=== PATIENT | female | born 1965 | race Caucasian/White ===

== ENCOUNTER → 2017-11-28 14:16 | Outpatient (CLI) | payer MEDICARE, MEDICAID, SELFPAY ==
[2017-11-28 15:15] LABS: Amphetamine Urine VISTA NEGATIVE (<1000 ng/mL); Barbiturate Urine VISTA NEGATIVE (< 200 ng/mL); Benzodiazepine Urine VISTA POSITIVE (< 200 ng/mL); Cocaine Urine VISTA NEGATIVE (< 300 ng/mL); Ecstacy Urine VISTA NEGATIVE (< 500 ng/mL); Methadone Urine VISTA NEGATIVE (< 300 ng/mL); PCP Urine VISTA NEGATIVE (< 25 ng/mL); THC Urine VISTA NEGATIVE (< 50 ng/mL); Vista UDS pH Range 7
== END ==
PROVIDERS: Family Provider Nurse Practitioner; PCP Nurse Practitioner; Visit Provider Anesthesiology Pain Medicine
DX: F11.20 Opioid dependence, uncomplicated (principal)
CPT/HCPCS: 80307

== ENCOUNTER → 2018-02-02 13:51 | Outpatient (CLI) | payer MEDICARE, MEDICAID, SELFPAY ==
[2018-02-02 15:42] LABS: ALB/GLOB Ratio 1.2 RATIO (0.9-2.4); AST(SGOT) 61 U/L (15-37); Alanine Aminotransfer ALT/SGPT 107 U/L (13-56); Alkaline Phosphatase 79 U/L (45-117); Anion Gap 5 (5-15); BUN 6 mg/dL (7-18); BUN/Creat Ratio 6.5 RATIO (10-20); Calcium,Total 9.3 mg/dL (8.5-10.1); Chloride 109 mmol/L (98-107); Creatinine, Serum 0.92 mg/dL (0.55-1.02); EST Glomerular Filtration Rate 68 mL/min (>60); Est Glom Filt Rate - Afr Amer 82 mL/min (>60); Globulin 3.3 g/dL (2.2-4.2); Glucose 84 mg/dL (74-106); Magnesium 2.4 mg/dL (1.6-2.6); Phosphorus 3.4 mg/dL (2.5-4.9); Protein, Total 7.3 g/dL (6.4-8.2); Sodium Level 142 mmol/L (136-145)
== END ==
PROVIDERS: Family Provider Nurse Practitioner; PCP Nurse Practitioner; Visit Provider Nurse Practitioner Acute Care
DX: G62.9 Polyneuropathy, unspecified (principal); R33.9 Retention of urine, unspecified
CPT/HCPCS: 36415; 80053; 83735; 84100

== ENCOUNTER → 2018-02-12 16:40 | Outpatient (CLI) | payer MEDICARE, MEDICAID, SELFPAY ==
--- NOTE | 2018-02-12 16:40 | DT_ITS ---
This patient was seen during an EMR downtime February 05, 2018 - February 12, 2018. This patient may have a combination of paper and electronic documentation or all paper documentation. All documentation is viewable within the e-chart portion of [employer] for each patient visit.
== END ==
PROVIDERS: Family Provider Nurse Practitioner; PCP Nurse Practitioner; Visit Provider Nurse Practitioner Adult Health
DX: N39.0 Urinary tract infection, site not specified (principal)
CPT/HCPCS: 87077; 87086; 87088; 87186

== ENCOUNTER → 2018-09-13 11:39 | Outpatient (CLI) | payer MEDICARE, MEDICAID, SELFPAY ==
[2018-09-13 13:13] LABS: Amphetamine Urine VISTA NEGATIVE (<1000 ng/mL); Barbiturate Urine VISTA NEGATIVE (< 200 ng/mL); Benzodiazepine Urine VISTA POSITIVE (< 200 ng/mL); Cocaine Urine VISTA NEGATIVE (< 300 ng/mL); Ecstacy Urine VISTA NEGATIVE (< 500 ng/mL); Methadone Urine VISTA NEGATIVE (< 300 ng/mL); PCP Urine VISTA NEGATIVE (< 25 ng/mL); THC Urine VISTA POSITIVE (< 50 ng/mL); Vista UDS pH Range 7
== END ==
PROVIDERS: Family Provider Nurse Practitioner; PCP Nurse Practitioner; Referring Provider Anesthesiology Pain Medicine; Visit Provider Anesthesiology Pain Medicine
DX: F11.20 Opioid dependence, uncomplicated (principal)
CPT/HCPCS: 80307

== ENCOUNTER → 2018-11-21 13:03 | Outpatient (CLI) | payer MEDICARE, MEDICAID, SELFPAY ==
--- NOTE | 2018-11-21 13:13 | MRI_ITS ---
STUDY: MRI LUMBAR SPINE WITHOUT CONTRAST REASON FOR EXAM: Female, 53 years old. Back pain, bilateral leg pain. TECHNIQUE: Standardized fat and water weighted pulse sequences were obtained in the sagittal and axial planes. COMPARISON: 05/29/2017. FINDINGS: T12-L1: Normal endplates. Normal disc height, hydration and morphology. Normal bilateral facet joints. Normal central canal and bilateral lateral recesses. Normal bilateral intervertebral neural foramina. Normal lumbar lordosis. There is no substantial scoliosis. Normal conus medullaris that terminates at the L1-2 level. L1-2: Normal endplates. Normal disc height, hydration and morphology. Normal bilateral facet joints. Normal central canal and bilateral lateral recesses. Normal bilateral intervertebral neural foramina. L2-3: Normal endplates. Normal disc height, hydration and morphology. Normal bilateral facet joints. Normal central canal and bilateral lateral recesses. Normal bilateral intervertebral neural foramina. L3-4: Normal endplates. Normal disc height, hydration and morphology. Normal bilateral facet joints. Normal central canal and bilateral lateral recesses. Normal bilateral intervertebral neural foramina. L4-5: Normal endplates. Disc dehydration. There is a small, central, noncompressive disc protrusion. This appears predominantly spondylotic. No change compared to the prior study. Normal bilateral facet joints. Normal central canal and bilateral lateral recesses. Normal bilateral intervertebral neural foramina. L5-S1: Normal endplates. Normal disc height, hydration and morphology. Normal bilateral facet joints. Normal central canal and bilateral lateral recesses. Normal bilateral intervertebral neural foramina. Normal visualized sacral ala. Normal visualized paraspinous soft tissue structures. MRI/Spine Lumbar (Routine) IMPRESSION: 1. Stable L4-5 protrusion, predominantly spondylotic. 2. L4-5 degenerative disc changes. Electronically Signed: Karen Lei MD at 21:37 EDT Tel , Service support ,
== END ==
PROVIDERS: Family Provider Internal Medicine Rheumatology; PCP Internal Medicine; Referring Provider Anesthesiology Pain Medicine; Visit Provider Anesthesiology Pain Medicine
DX: M54.9 Dorsalgia, unspecified (principal); M79.606 Pain in leg, unspecified
CPT/HCPCS: 72148

== ENCOUNTER → 2018-12-12 16:00 | Outpatient (CLI) | payer MEDICARE, MEDICAID, SELFPAY ==
[2018-12-12 18:07] LABS: Amphetamine Urine VISTA NEGATIVE (<1000 ng/mL); Barbiturate Urine VISTA NEGATIVE (< 200 ng/mL); Benzodiazepine Urine VISTA POSITIVE (< 200 ng/mL); Cocaine Urine VISTA NEGATIVE (< 300 ng/mL); Ecstacy Urine VISTA NEGATIVE (< 500 ng/mL); Methadone Urine VISTA NEGATIVE (< 300 ng/mL); PCP Urine VISTA NEGATIVE (< 25 ng/mL); THC Urine VISTA NEGATIVE (< 50 ng/mL); Vista UDS pH Range 7
== END ==
PROVIDERS: Family Provider Internal Medicine; PCP Internal Medicine; Referring Provider Anesthesiology Pain Medicine; Visit Provider Anesthesiology Pain Medicine
DX: F11.20 Opioid dependence, uncomplicated (principal)
CPT/HCPCS: 80307

== ENCOUNTER → 2019-01-23 12:13 | Outpatient (CLI) | payer MEDICARE, MEDICAID, SELFPAY ==
--- NOTE | 2019-01-23 13:58 | NEURO ---
NCS and/or EMG Patient Report Ordering Doctor: Maritza Hanna DATE OF SERVICE: 01/23/19 Annie Andrews is a 53-year-old female presents for electrodiagnostic testing of the lower limbs. She has back pain which radiates into both legs. She reports sharp pains in the lateral aspect of both feet with burning. Electrodiagnostic findings: Peroneal motor nerve demonstrates normal distal latency, amplitude and conduction velocity bilaterally. Normal tibial motor response bilaterally. Normal peroneal and tibial F waves. H reflex normal bilaterally. Borderline prolonged sural latency bilaterally. Superficial peroneal and medial plantar responses are within normal limits. Needle EMG testing reveals 1+ fibrillations in the right anterior tibialis, left internal hamstrings and bilateral peroneus longus. There also fibrillations noted bilaterally in the lower lumbar paraspinals bilaterally. Motor unit action potentials are of normal amplitude and duration. Electrodiagnostic assessment: This is an abnormal study in the lower limbs. 1. Electrodiagnostic findings demonstrate acute bilateral L5 radiculopathy. 2. There is no electrodiagnostic evidence for peripheral polyneuropathy. If there are any further questions, please not hesitate to contact me.
== END ==
PROVIDERS: Family Provider Internal Medicine; PCP Internal Medicine; Referring Provider Anesthesiology Pain Medicine; Visit Provider Anesthesiology Pain Medicine
DX: M79.604 Pain in right leg (principal); M79.605 Pain in left leg; M54.9 Dorsalgia, unspecified
CPT/HCPCS: 95886; 95913

== ENCOUNTER → 2019-02-09 13:32 | Outpatient (CLI) | payer MEDICARE, MEDICAID, SELFPAY ==
--- NOTE | 2019-02-09 13:46 | RAD_ITS ---
STUDY: X-RAY - CERVICAL SPINE REASON FOR EXAM: Female, 53 years old. Neck and right arm pain TECHNIQUE: 3 view(s) of the cervical spine were obtained. COMPARISON: None FINDINGS: Normal anterior atlantoaxial articulation. Normal odontoid process. Normal cervical lordosis. There is multi-level endplate spondylosis. Disc space narrowing at C5-C6 and C6-C7. No subluxation. The soft tissue structures are unremarkable. RAD/Cerv Spine 2 or 3 Views IMPRESSION: 1. Moderate degenerative disc disease in the lower cervical levels. No subluxation. Electronically Signed: Darren Sharma MD at 16:43 EDT , Service support ,
== END ==
PROVIDERS: Family Provider Internal Medicine; PCP Internal Medicine; Referring Provider Anesthesiology Pain Medicine; Visit Provider Anesthesiology Pain Medicine
DX: M54.2 Cervicalgia (principal)
CPT/HCPCS: 72040

== ENCOUNTER → 2019-10-08 09:39 | Outpatient (CLI) | payer MEDICARE, MEDICAID, SELFPAY ==
--- NOTE | 2019-10-08 10:45 | MRI_ITS ---
STUDY: MRI LUMBAR SPINE WITHOUT CONTRAST REASON FOR EXAM: Female, 54 years old. Back pain and leg pain injury 3 years ago TECHNIQUE: Standardized fat and water weighted pulse sequences were obtained in the sagittal and axial planes. COMPARISON: 21 November 2018 FINDINGS: lumbar spine is intact and aligned. Marrow, paraspinous soft tissues and SI joints are unremarkable. There is mild expected age-appropriate change. There is severe elevation of BMI.and intra and extra abdominal lipomatosis. Conus medullaris terminates at the appropriate level with unremarkable cauda equina. Canal, foramina and lateral recesses are patent. MRI/Spine Lumbar (Routine) IMPRESSION: 1. Unremarkable age appropriate lumbar spine. 2. Patent canal, no neural compression. Electronically Signed: Karla Rodriguez, at 17:41 EST Tel , Service support ,
== END ==
PROVIDERS: PCP Internal Medicine; Referring Provider Anesthesiology Pain Medicine; Visit Provider Anesthesiology Pain Medicine
DX: M54.9 Dorsalgia, unspecified (principal); M79.606 Pain in leg, unspecified
CPT/HCPCS: 72148

== ENCOUNTER → 2020-01-30 14:07 | Outpatient (CLI) | payer MEDICARE, MEDICAID, SELFPAY ==
[2020-01-30 17:26] LABS: Amphetamine Urine VISTA NEGATIVE (<1000 ng/mL); Barbiturate Urine VISTA NEGATIVE (< 200 ng/mL); Benzodiazepine Urine VISTA POSITIVE (< 200 ng/mL); Cocaine Urine VISTA NEGATIVE (< 300 ng/mL); Ecstacy Urine VISTA NEGATIVE (< 500 ng/mL); Methadone Urine VISTA NEGATIVE (< 300 ng/mL); PCP Urine VISTA NEGATIVE (< 25 ng/mL); THC Urine VISTA NEGATIVE (< 50 ng/mL); Vista UDS pH Range 6
== END ==
PROVIDERS: PCP Internal Medicine; Referring Provider Anesthesiology Pain Medicine; Visit Provider Anesthesiology Pain Medicine
DX: F11.20 Opioid dependence, uncomplicated (principal)
CPT/HCPCS: 80307

== ENCOUNTER 2020-06-19 12:16 | Day surgery (SDC) | payer MEDICARE, MEDICAID, SELFPAY ==
[2020-06-19 12:45] VITALS: BP 149/74; PULSE 73; RESP 16; TEMP 36.4; O2SAT 100; BMI 32.2
[2020-06-19] MEDS: Lactated Ringers 1,000 ML 100 ML IV ×2 (12:50→15:32)
[2020-06-19] MEDS: Cefazolin 2 GM in 0.9% Normal Saline 100 ML IV (13:22)
--- NOTE | 2020-06-19 13:25 | RAD_ITS ---
STUDY: X-RAY - LUMBAR SPINE REASON FOR EXAM: Female, 54 years old. INSERTION SPINAL CORD STIMULATOR. LEVEL T8. TECHNIQUE: 12 C-arm view(s) of the lumbar spine were obtained. 357 seconds fluoroscopy time COMPARISON: None FINDINGS: These series of C-arm images show placement of epidural stimulator behind T8-T10. Correlate with procedure note. Electronically Signed: Hermann Goff MD at 16:50 EDT , Service support , RAD/Lumbar Spine 2 or 3 Views
[2020-06-19] MEDS: Bupiv/Epi 0.25% 30 ML Vial (13:51)
[2020-06-19 15:20] VITALS: BP 149/74; BP 157/82; PULSE 87; RESP 16; TEMP 36.4; O2SAT 96
[2020-06-19 15:30] VITALS: BP 149/74; BP 152/77; PULSE 70; RESP 16; O2SAT 98
[2020-06-19 15:45] VITALS: BP 149/74; BP 157/81; PULSE 70; RESP 16; O2SAT 97
[2020-06-19 15:53] VITALS: BP 149/74; BP 172/69; PULSE 71; RESP 16; TEMP 36.3; O2SAT 97
[2020-06-19 16:47] VITALS: BP 137/75; BP 149/74; PULSE 68; RESP 18; TEMP 36.4; O2SAT 99
== END 2020-06-19 17:02 | disposition home or self-care (01) ==
LOC: SDC 12:17 → AC 12:17
PROVIDERS: Anesthesiology; PCP Internal Medicine; Referring Provider Anesthesiology Pain Medicine; Visit Provider Anesthesiology Pain Medicine
PROC: (CPT 63685; principal; 2020-06-19 13:35)
DX: M54.16 Radiculopathy, lumbar region (principal); G89.4 Chronic pain syndrome; G47.30 Sleep apnea, unspecified; K21.9 Gastro-esophageal reflux disease without esophagitis; F31.9 Bipolar disorder, unspecified; F41.9 Anxiety disorder, unspecified; F17.210 Nicotine dependence, cigarettes, uncomplicated; Z79.891 Long term (current) use of opiate analgesic; Z79.899 Other long term (current) drug therapy; Z20.828 Contact with and (suspected) exposure to other viral communicable diseases
CPT/HCPCS: 01922; 63650 ×2; 63685; 72100; 76000; 87635; C1778; C9803; J7120; J2405; U0003

== ENCOUNTER → 2020-09-16 14:57 | Outpatient (CLI) | payer MEDICARE, MEDICAID, SELFPAY ==
--- NOTE | 2020-09-16 15:10 | RAD_ITS ---
STUDY: X-RAY - RIGHT WRIST REASON FOR EXAM: Female, 55 years old. Right wrist pain. TECHNIQUE: 3 view(s) of the wrist were obtained. COMPARISON: None. FINDINGS: Normal visualized distal radius and ulna. Normal radiocarpal articulation. Normal distal radioulnar articulation. Normal carpal bones. Mild arthrosis of the radial carpal row. Mild arthrosis of the first CMC joint. Normal second through fifth carpometacarpal articulations. Normal visualized metacarpal bones. The soft tissue structures are unremarkable. RAD/Wrist min 3 Views IMPRESSION: Mild osteoarthritic changes. No acute finding. Electronically Signed: Francisco Macdonald MD at 17:04 EST , Service support ,
== END ==
PROVIDERS: PCP Internal Medicine; Referring Provider Anesthesiology Pain Medicine; Visit Provider Anesthesiology Pain Medicine
DX: M19.031 Primary osteoarthritis, right wrist (principal)
CPT/HCPCS: 73110

== ENCOUNTER → 2020-11-11 15:14 | Outpatient (CLI) | payer MEDICARE, MEDICAID, SELFPAY ==
--- NOTE | 2020-11-11 15:20 | RAD_ITS ---
STUDY: X-RAY - THORACIC SPINE REASON FOR EXAM: Female, 55 years old. BACK PAIN TECHNIQUE: 3 view(s) of the thoracic spine were obtained. COMPARISON: 2016 FINDINGS: Normal kyphosis of the thoracic spine. There is no substantial scoliosis. Normal thoracic vertebrae and endplates. Mild disc space narrowing. Since the previous study, a neural stimulator has been placed, no complications are noted on this study. RAD/Thoracic Spine 3 Views IMPRESSION: Mild degenerative changes, no acute findings or significant interval change Electronically Signed: Elvis Heard MD at 17:53 EST , Service support ,
== END ==
PROVIDERS: PCP Internal Medicine; Referring Provider Anesthesiology Pain Medicine; Visit Provider Anesthesiology Pain Medicine
DX: M54.9 Dorsalgia, unspecified (principal)
CPT/HCPCS: 72072

== ENCOUNTER 2021-01-24 14:38 | Emergency (ER) | payer MEDICARE, MEDICAID, SELFPAY ==
[2021-01-24 14:38] VITALS: BP 143/81; PULSE 77; RESP 16; TEMP 37.1; O2SAT 98; BMI 30.4
--- NOTE | 2021-01-24 15:47 | EDS_ITS ---
HPI History of Present Illness Chief Complaint: Headache Informant: patient and spouse/S.O. Onset/Context/Timing Onset: Month(s) Timing: Continuous Current Severity: Mild Maximum Severity: Moderate Associated Symptoms/Injury Associated Symptoms: Positive for Nausea and Vomiting; Negative for Fever Narrative Narrative: 55-year-old female history of bipolar disorder. States she has had gradual onset of a headache for 5 months at the end of August. Says it is in both sides of her head. At times associated nausea and vomiting. It is there daily. No strokelike symptoms. No fall or trauma. She is on no anticoagulants. There is no family history of brain aneurysms or intracranial bleed. No sinus congestion or fever. Prior similar symptoms: Yes Recent Illness/Hospitalization: No PFSH PFSH Medical History (Updated 01/24/21 @ 17:[address] Kristian Rodrigez MD) Back pain Bipolar 1 disorder Spinal cord stimulator status Home Medications alprazolam 1 mg PO TID 06/11/20 [History Last Taken Unknown] lithium carbonate 600 mg PO BID 06/11/20 [History Last Taken 06/19/20] omeprazole 20 mg PO DAILY 06/11/20 [History Last Taken Unknown] oxycodone-acetaminophen 1 ea PO BID 06/11/20 [History Last Taken 06/19/20] propranolol 10 mg PO 4X/DAY PRN PRN 01/24/21 [History Last Taken Unknown] Allergy/AdvReac Type Severity Reaction Status Date / Time gabapentin Allergy Angioedema Verified 01/24/21 14:41 Iodinated Contrast Media Allergy PT UNSURE Verified 01/24/21 14:41 [DYEE] OF REACTION pregabalin [From Lyrica] Allergy Anaphylaxis Verified 01/24/21 14:41 tramadol Allergy Anaphylaxis Verified 01/24/21 14:41 Surgical History (Updated 01/24/21 @ 16:22 by Terrie Lewis) H/O lumpectomy H/O: hysterectomy Social History Smoking Status: Current every day smoker ROS ROS ED ROS Narrative Headache with intermittent nausea and vomiting Review of Systems ROS Unobtainable: Denies due to encephalopathy Constitutional Constitutional ED: Denies fever(s) Eyes Eyes: Denies change in vision ENT ENT ED: Denies ear pain or sore throat Cardiovascular Cardiovascular: Denies chest pain Respiratory/Chest Respiratory/Chest: Denies dyspnea Gastrointestinal Gastrointestinal: Reports nausea and vomiting; Denies abdominal pain Genitourinary Genitourinary ED: Denies dysuria Musculoskeletal Musculoskeletal: Denies myalgias Integumentary Denies rash Neurologic Neurologic: Reports headache(s) Psychiatric Psychiatric: Denies depression Endocrine Endocrinology: Denies polyuria Hematologic/Lymphatic Hematologic/Lymphatic: Denies easy bruising Allergic/Immunologic Allergic/Immunologic ED: Denies urticaria EXAM Physical Exam Narrative Exam Narrative: Well-appearing middle-aged female. No acute distress. Vital signs stable afebrile. Initial blood pressure 143/81. Does not look septic or toxic. No distress. HEENT exam normal. No facial droop. Heart lung abdominal exam is normal. Moving all 4 extremities. Neurologic exam normal. NIH is 0. Equal symmetrical 5-5 waiter/waitress captain strength. Normal speech. No facial droop. Dorsi plantar flexion intact. Const Vital Signs: 01/24/21 14:38 Temperature 98.7 F Temperature Source Temporal Pulse Rate 77 Respiratory Rate 16 Blood Pressure 143/81 H Blood Pressure Mean 101 Pulse Ox 98 Positive well nourished and well developed General Appearance ED: well developed HEENT Reports normocephalic and moist mucous membranes atraumatic; Negative for trauma or tenderness Eyes PERRL and EOMs intact bilaterally Neck no lymphadenopathy and supple Resp normal respiratory effort and clear to auscultation bilaterally Cardio regular rate, regular rhythm and no murmurs GI non-tender and non-distended Auscultation: normoactive bowel sounds Palpation: soft Back/Spine no CVA tenderness Extremity normal to inspection Neuro oriented x3 Sensorium / Orientation: awake, alert, oriented to person, oriented to place and oriented to time Psych mental status grossly normal Skin Rashes: no rashes Nails: normal MDM MDM MDM Narrative Medical decision making narrative: Patient reportedly with a headache for approximately 5 months. Normal neurologic exam. She will be treated with IV fluids, Toradol, Benadryl and Reglan and reassess. Repeat exam at 5:35 PM patient is doing well. Headache is resolved after the medications. States she feels much better. Neurologic exam remains normal and unchanged. She is comfortable being discharged home. Outpatient follow-up. Discharge Plan Triage Chief Complaint: Headache ED Provider: Kristian Rodrigez Dx/Rx/DC Orders Clinical Impression: Headache Instructions: ED Headache Unspecified Prescriptions: No Action alprazolam 1 MG tablet 1 mg PO TID RF: 0 lithium carbonate 300 MG tablet extended release 600 mg PO BID RF: 0 oxycodone-acetaminophen 1 EACH tablet 1 ea PO BID RF: 0 omeprazole 20 MG capsule 20 mg PO DAILY RF: 0 propranolol 10 mg Tablet 10 mg PO 4X/DAY PRN PRN (Reason: essential tremors) RF: 0 Primary Care Provider: Zack Rush Referrals: Zack Rush MD [Primary Care Provider] - 3-5 Days if not improving Activity Restrictions/Additional Instructions: Plenty of fluids and rest. Tylenol and Motrin as needed for the headache. Follow-up with your doctor if not improving. Return emergency department if you are feeling worse. Disposition Disposition: Home, self care
[2021-01-24] MEDS: Ketorolac 30 MG/ML Syringe IV (16:18)
[2021-01-24] MEDS: 0.9% Normal Saline 1,000 ML 1000 ML IV (16:18)
[2021-01-24] MEDS: Metoclopramide 10 MG/2 ML Vial 5 MG IV (16:18)
[2021-01-24] MEDS: DiphenhydrAMINE 50 MG/ML Syringe 25 MG IV (16:18)
[2021-01-24 17:37] VITALS: BP 135/67; PULSE 56; RESP 14; O2SAT 97
== END 2021-01-24 17:52 | disposition home or self-care (01) ==
PROVIDERS: Emergency Provider Emergency Medicine; PCP Internal Medicine
DX: R51.9 Headache, unspecified (principal); F31.9 Bipolar disorder, unspecified; F17.200 Nicotine dependence, unspecified, uncomplicated; Z79.899 Other long term (current) drug therapy
CPT/HCPCS: 96361; 96374; 96375; 99284; J7030; A4216

== ENCOUNTER 2021-05-14 12:43 | Day surgery (SDC) | payer MEDICARE, MEDICAID, SELFPAY ==
[2021-05-14] VITALS (7 sets, daily range): BP systolic 128–146; BP diastolic 68–88; PULSE 60–77; RESP 16–18; TEMP 36.1–36.2; O2SAT 95–98; BMI 30.8
[2021-05-14] MEDS: Lactated Ringers 1,000 ML 100 ML IV (12:55)
[2021-05-14] MEDS: Cefazolin 2 GM in 0.9% Normal Saline 100 ML IV (15:32)
== END 2021-05-14 17:26 | disposition home or self-care (01) ==
LOC: SDC 12:47 → AC 12:55
PROVIDERS: PCP Internal Medicine; Referring Provider Anesthesiology Pain Medicine; Visit Provider Anesthesiology Pain Medicine
PROC: (CPT 63685; principal; 2021-05-14 14:15)
DX: T85.192A Other mechanical complication of implanted electronic neurostimulator of spinal cord electrode (lead), initial encounter (principal); G89.29 Other chronic pain; F17.200 Nicotine dependence, unspecified, uncomplicated; Z53.8 Procedure and treatment not carried out for other reasons
CPT/HCPCS: 01936; 63661; 63688; J7120

== ENCOUNTER 2021-08-25 10:24 | Day surgery (SDC) | payer MEDICARE, MEDICAID, SELFPAY ==
[2021-08-25] MEDS: Lactated Ringers 1,000 ML 15 ML IV ×2 (10:35→12:30)
[2021-08-25 10:53] VITALS: BP 149/77; PULSE 60; RESP 16; TEMP 36.8; O2SAT 99; BMI 30.8
--- NOTE | 2021-08-25 12:00 | RAD_ITS ---
STUDY: X-RAY - LUMBAR SPINE REASON FOR EXAM: Female, 56 years old. SPINAL CORD STIMULATOR REMOVAL TECHNIQUE: 4 intraoperative view(s) of the lumbar spine were obtained. COMPARISON: None FINDINGS: Intraoperative images demonstrate successful removal of stimulator. RAD/Spine 1 View Any Level IMPRESSION: Removal of stimulator. Electronically Signed: Cali Orellana DO at 16:10 EST Tel [phone], Service support ,
[2021-08-25] MEDS: Lidocaine 0.5% (50 ml) 50 ML Vial (13:22)
[2021-08-25 13:42] VITALS: BP 134/53; BP 149/77; PULSE 76; RESP 18; TEMP 36.3; O2SAT 94
[2021-08-25 13:45] VITALS: BP 127/67; BP 149/77; PULSE 75; RESP 16; O2SAT 94
[2021-08-25 14:00] VITALS: BP 123/72; BP 149/77; PULSE 70; RESP 16; O2SAT 95
[2021-08-25 14:13] VITALS: BP 141/74; BP 149/77; PULSE 65; RESP 16; TEMP 36.1; O2SAT 99
--- NOTE | 2021-08-25 14:59 | SUR.PHASEII ---
This nurse called Dr. Hanna's office to inquire about possible antibiotic. Nurse at office asked Jacques and cholo to be sent over to pt pharmacy.
[2021-08-25 15:00] VITALS: BP 139/55; BP 149/77; PULSE 56; RESP 16; TEMP 36; O2SAT 100
--- NOTE | 2021-08-25 15:26 | SUR.PHASEII ---
patient awaiting script, cleared for discharge at 1515.
== END 2021-08-25 15:37 | disposition home or self-care (01) ==
LOC: SDC 10:28 → AC 10:28
PROVIDERS: PCP Internal Medicine; Referring Provider Anesthesiology Pain Medicine; Visit Provider Anesthesiology Pain Medicine
PROC: (CPT 63685; principal; 2021-08-25 11:45)
DX: Z45.42 Encounter for adjustment and management of neurostimulator (principal); M54.16 Radiculopathy, lumbar region; M54.17 Radiculopathy, lumbosacral region; M51.36 Other intervertebral disc degeneration, lumbar region; M51.37 Other intervertebral disc degeneration, lumbosacral region; G89.4 Chronic pain syndrome; K21.9 Gastro-esophageal reflux disease without esophagitis; F31.9 Bipolar disorder, unspecified; F17.290 Nicotine dependence, other tobacco product, uncomplicated; Z79.899 Other long term (current) drug therapy
CPT/HCPCS: 01936; 63661; 63688; 72020; 76000; J7120; J2405

== ENCOUNTER 2021-09-09 14:09 | Outpatient (CLI) | payer MEDICARE, MEDICAID, SELFPAY ==
[2021-09-09 16:02] LABS: Amphetamine Urine VISTA NEGATIVE (<1000 ng/mL); Barbiturate Urine VISTA NEGATIVE (< 200 ng/mL); Benzodiazepine Urine VISTA POSITIVE (< 200 ng/mL); Cocaine Urine VISTA NEGATIVE (< 300 ng/mL); Ecstacy Urine VISTA NEGATIVE (< 500 ng/mL); Methadone Urine VISTA NEGATIVE (< 300 ng/mL); PCP Urine VISTA NEGATIVE (< 25 ng/mL); THC Urine VISTA NEGATIVE (< 50 ng/mL); Vista UDS pH Range 6
== END 2021-09-09 23:59 | disposition short-term general hospital (02) ==
LOC: LAB 14:13
PROVIDERS: PCP Internal Medicine; Referring Provider Anesthesiology Pain Medicine; Visit Provider Anesthesiology Pain Medicine
DX: F11.20 Opioid dependence, uncomplicated (principal)
CPT/HCPCS: 80307

== ENCOUNTER → 2023-05-02 | Outpatient (CLI) | payer MEDICARE, MEDICAID, SELFPAY ==
[2023-05-02 14:29] LABS: Amphetamine Urine VISTA NEGATIVE (<1000 ng/mL); Barbiturate Urine VISTA NEGATIVE (< 200 ng/mL); Benzodiazepine Urine VISTA POSITIVE (< 200 ng/mL); Cocaine Urine VISTA NEGATIVE (< 300 ng/mL); Ecstacy Urine VISTA NEGATIVE (< 500 ng/mL); Methadone Urine VISTA NEGATIVE (< 300 ng/mL); PCP Urine VISTA NEGATIVE (< 25 ng/mL); THC Urine VISTA NEGATIVE (< 50 ng/mL); Vista UDS pH Range 6
== END | disposition home or self-care (01) ==
LOC: LAB 13:48
PROVIDERS: PCP Internal Medicine; Referring Provider Anesthesiology Pain Medicine; Visit Provider Anesthesiology Pain Medicine
DX: F11.20 Opioid dependence, uncomplicated (principal)
CPT/HCPCS: 80307